=== PATIENT | male | born 1990 | race Caucasian/White ===

== ENCOUNTER 2016-11-25 11:01 | Emergency (ER) | payer SELFPAY ==
[~2016-11-25] VITALS: Wt 72.6 kg
[~2016-11-25 11:01] MED LIST: MOTRIN800 MG PO; NKHM; PREDNICOT20 MG PO; VOLTAREN50 M1 PO; ZITHROMAX Z PA250 MG PO; ZYRTEC10 MG PO
== END 2016-11-25 12:07 | disposition left against medical advice (07) ==
LOC: ED 11:01
DX: R53.1 Weakness (principal); F17.200 Nicotine dependence, unspecified, uncomplicated; Z79.899 Other long term (current) drug therapy; Z53.21 Procedure and treatment not carried out due to patient leaving prior to being seen by health care provider

== ENCOUNTER 2017-09-08 16:49 | Emergency (ER) | payer SELFPAY ==
[~2017-09-08] VITALS: Ht 170.1 cm; Wt 70.3 kg
[2017-09-08] MEDS ORDERED: NAPROSYN500 MG PO (17:55)
== END 2017-09-08 17:59 | disposition home or self-care (01) ==
LOC: ED 16:49
DX: M77.9 Enthesopathy, unspecified (principal); M25.531 Pain in right wrist

== ENCOUNTER 2018-11-12 17:23 | Emergency (ER) | payer SELFPAY ==
[~2018-11-12] VITALS: Ht 170.1 cm; Wt 72.6 kg
[~2018-11-12 17:23] MED LIST changes: +IBUPROFEN600 MG PO; +NAPROSYN500 MG PO; +NORCO 5-325 TA1 EACH PO; +SEPTDS PO; +SILVADENE,SSD C50 GM T
[2018-11-12 18:03] LABS: BASO # 0.1 10*3/uL (0.0-0.1); BASO % 0.8 % (0.0-1.0); EOS # 0.3 10*3/uL (0.0-0.4); EOS % 4.4 % (1.0-4.0); HEMATOCRIT 39.5 % (42.0-52.0); HEMOGLOBIN 13.4 g/dl (14.0-18.0); LYMPH # 2.6 10*3/uL (1.3-4.4); LYMPH % 40.1 % (27.0-41.0); MEAN CELL VOLUME 92.5 fl (80.0-94.0); MEAN CORPUSCULAR HGB 31.4 pg (27.0-31.0); MEAN CORPUSCULAR HGB CONC 33.9 g/dl (33.0-37.0); MEAN PLATELET VOLUME 10.7 fl (9.6-12.3); MONO # 0.4 10*3/uL (0.1-1.0); MONO % 6.3 % (3.0-9.0); NEUT # 3.1 10*3/uL (2.3-7.9); NEUT % 48.2 % (47.0-73.0); PLATELET COUNT AUTOMATED 190 10*3/uL (130-400); RED BLOOD COUNT 4.27 10*6/uL (4.50-5.90); RED CELL DISTRI WIDTH 12.4 % (0-14.5); WHITE BLOOD COUNT 6.4 10*3/uL (4.8-10.8)
[2018-11-12 18:18] LABS: ALBUMIN 4.2 gm/dl (3.1-4.5); ALKALINE PHOSPHATASE 74 U/L (45-117); BUN 15 mg/dl (7-24); CHLORIDE 111 mmol/L (98-107); CREATININE 0.97 mg/dL (0.70-1.30); POTASSIUM 3.8 mmol/L (3.5-5.1); SGOT/AST 12 IU/L (3-35); SGPT/ALT 22 U/L (12-78); SODIUM 142 mmol/L (136-145); TOTAL PROTEIN 7.4 gm/dL (6.4-8.2)
[2018-11-12] MEDS ORDERED: NORCO 5-325 TA1 EACH PO (20:20)
== END 2018-11-12 20:42 | disposition home or self-care (01) ==
LOC: ED 17:23
PROVIDERS: Physician Assistant
DX: T23.601A Corrosion of second degree of right hand, unspecified site, initial encounter (principal); T23.631A Corrosion of second degree of multiple right fingers (nail), not including thumb, initial encounter; Z88.8 Allergy status to other drugs, medicaments and biological substances; Z79.2 Long term (current) use of antibiotics; Z79.899 Other long term (current) drug therapy; Y93.89 Activity, other specified; Y92.89 Other specified places as the place of occurrence of the external cause; Y99.8 Other external cause status

== ENCOUNTER 2018-12-23 18:17 | Emergency (ER) | payer SELFPAY ==
[~2018-12-23] VITALS: Ht 170.1 cm; Wt 70.3 kg
== END 2018-12-23 20:35 | disposition left against medical advice (07) ==
LOC: ED 18:17
DX: G43.909 Migraine, unspecified, not intractable, without status migrainosus (principal)

== ENCOUNTER 2023-02-13 11:25 | Emergency (ER) | payer SELFPAY ==
[~2023-02-13] VITALS: Ht 170.1 cm; Wt 72.6 kg
== END 2023-02-13 12:00 | disposition home or self-care (01) ==
LOC: ED 11:25
DX: H66.93 Otitis media, unspecified, bilateral (principal); R42 Dizziness and giddiness; G43.909 Migraine, unspecified, not intractable, without status migrainosus